=== PATIENT | female | born 1980 | race Caucasian/White ===

== ENCOUNTER 2017-10-09 21:26 | Inpatient (IN) | payer MEDICAID, OTHER ==
[~2017-10-09] VITALS: Ht 172.7 cm; Wt 94.0 kg
[2017-10-09 22:15] LABS: Basophils # (auto) 0 uL; Basophils % (auto) 0.4 % (0.0-2.0); Eosinophils # (auto) 0 uL; Hemoglobin 14.6 g/dL (12.2-16.2); Lymphocytes # (auto) 0.8 uL; Lymphocytes % (auto) 9.2 % (10.0-50.0); Mean Corpuscular Hemoglobin 29.3 pg (28.0-32.0); Mean Corpuscular Hgb Conc. 31.7 g/dL (32.0-36.0); Mean Corpuscular Volume 92.4 fL (80.0-100.0); Monocytes # (auto) 0.5 uL; Monocytes % (auto) 5.5 % (0.0-12.0); Neutrophils # (auto) 7.3 uL; Neutrophils % (auto) 84.9 % (37.0-80.0); Nucleated Red Blood Cells % 0.2 %; Platelet Count (auto) 360 10^3/uL (140-450); Red Blood Cells 4.98 10^6/uL (4.0-5.20); Red Cell Distribution Width 14.1 % (11.8-14.3); White Blood Cell 8.7 10^3/uL (4.4-10.8)
[2017-10-09 22:29] LABS: Albumin 4.1 g/dL (3.4-5.0); BUN/Creatinine Ratio 19.6; Bilirubin, Total 0.5 mg/dL (0.2-1.0); Calcium 8.7 mg/dL (8.5-10.1); Potassium 4.3 mmol/L (3.5-5.1); Total Protein 8.4 g/dL (6.4-8.2)
[2017-10-09 22:43] LABS: Urine Bacteria NONE SEEN /hpf (None Seen); Urine Blood 3+ /uL (Negative); Urine Specific Gravity 1.016 (1.001-1.035); Urine WBC 182 /hpf (0 - 5)
[2017-10-09] MEDS ORDERED: SODIUM CHLORIDE 0.9% 2,000 ML IV ONE (23:45)
[2017-10-09] MEDS ORDERED: LORazepam 2MG/ML-1ML VIAL IV ONE (23:45)
[2017-10-09] MEDS ORDERED: NALBUPHINE HCL 10 MG/1ml INJECTION IV ONE (23:45)
[2017-10-10] VITALS (8 sets, daily range): BP systolic 88–118; BP diastolic 44–82
[2017-10-10] MEDS ORDERED: LORazepam 0.5 MG TAB PO ONE (01:45)
[2017-10-10] MEDS ORDERED: cefTRIAXone 1GM/10ml IVPUSH 10 ML IV ONE (01:45)
[2017-10-10] MEDS ORDERED: SODIUM CHLORIDE 0.9% 1,000 ML IV SCH ×4 (01:55→12:43)
[2017-10-10] MEDS ORDERED: InsuLIN R (HUMAN) 100 UNITS in SODIUM CHL 0.9% 99 ML IV SCH ×2 (01:55→08:43)
[2017-10-10] MEDS ORDERED: DEXTROSE (50%) 50ML SYRG IV PRN ×2 (02:00→08:45)
[2017-10-10] MEDS ORDERED: MAGNESIUM CITRATE SOLUTION 300 ML BTL PO ONE (02:00)
[2017-10-10] MEDS ORDERED: InsuLIN REG 1unit/0.01ml Soln (100units/ml) ONE (02:36)
[2017-10-10] MEDS: ACCU-CHEK COMFORT CURVE STRIP VI SCH ×15 (02:50→22:30)
[2017-10-10 03:27] LABS: BUN/Creatinine Ratio 18.9; Magnesium 2.8 mg/dL (1.6-2.6); Phosphorus 5.5 mg/dL (2.5-4.90)
[2017-10-10 04:24] LABS: Basophils # (auto) 0.1 uL; Hemoglobin 14.1 g/dL (12.2-16.2); White Blood Cell 17.7 10^3/uL (4.4-10.8)
[2017-10-10 04:26] LABS: Basophils % (auto) 0.5 % (0.0-2.0); Eosinophils # (auto) 0.1 uL; Eosinophils % (auto) 0.4 % (0.0-7.0); Hematocrit 46.6 % (36.0-46.0); Lymphocytes # (auto) 2.2 uL; Lymphocytes % (auto) 12.5 % (10.0-50.0); Mean Corpuscular Hemoglobin 29.4 pg (28.0-32.0); Mean Corpuscular Hgb Conc. 30.4 g/dL (32.0-36.0); Mean Corpuscular Volume 96.9 fL (80.0-100.0); Monocytes # (auto) 0.9 uL; Monocytes % (auto) 5.3 % (0.0-12.0); Neutrophils # (auto) 14.4 uL; Neutrophils % (auto) 81.3 % (37.0-80.0); Platelet Count (auto) 480 10^3/uL (140-450)
[2017-10-10] MEDS ORDERED: D5W/SOD CHLO 0.9% 1,000 ML IV SCH (04:45)
[2017-10-10] MEDS ORDERED: SODIUM BICARBONATE 8.4 % INJ 50ML VIAL IV ONE ×4 (05:15→23:45)
[2017-10-10] MEDS ORDERED: DIAZEPAM 5 MG/ML 2ML SYRG IV ONE (07:30)
[2017-10-10] MEDS ORDERED: SUCCINYLCHOLINE CHLORIDE 20 MG/ML 10ML VIAL IV ONE (08:00)
[2017-10-10] MEDS ORDERED: ETOMIDATE (2MG/ML) 20ML VIAL IV ONE ×2 (08:00→08:49)
[2017-10-10] MEDS ORDERED: AZITHROMYCIN 500MG/ 250ML 250 ML IV ONE (08:30)
[2017-10-10] MEDS ORDERED: PIPERACILLIN-TAZOB 3.375GM 50 ML IV ONE (08:30)
[2017-10-10] MEDS ORDERED: VANCOMYCIN PER PHARMACY 0 MG IV SCH (08:30)
[2017-10-10] MEDS ORDERED: SODIUM CHLORIDE 0.9% 2,000 ML IV ONE (08:30)
[2017-10-10] MEDS ORDERED: PROMETHAZINE HCL 25 MG/ML 1ML IV PRN (08:45)
[2017-10-10] MEDS ORDERED: MORPHINE SULFATE 4 MG/ML SYR/VIAL IV PRN ×3 (08:45→09:00)
[2017-10-10] MEDS ORDERED: ALBUTEROL SULF 2.5 MG/0.5ML(0.5%) NEB SOLN NEB PRN (08:45)
[2017-10-10] MEDS ORDERED: MORPHINE SULF INJ 2 MG/ML SYRINGE 1ML IV PRN ×2 (08:45)
[2017-10-10] MEDS ORDERED: OSELTAMIVIR 75 MG CAP PO ONE (08:45)
[2017-10-10] MEDS ORDERED: NITROGLYCERIN 0.4 MG SL TAB SL PRN (08:45)
[2017-10-10] MEDS ORDERED: LORazepam 2MG/ML-1ML VIAL IV PRN (08:45)
[2017-10-10] MEDS ORDERED: PROPOFOL 100 ML IV SCH (08:59)
[2017-10-10] MEDS: SODIUM CHLORIDE 0.9% 1,000 ML IV SCH ×4 (09:26→21:56)
[2017-10-10 09:27] LABS: Urine Bacteria NONE SEEN /hpf (None Seen); Urine Blood 2+ /uL (Negative); Urine Specific Gravity 1.015 (1.001-1.035); Urine WBC 1 /hpf (0 - 5)
[2017-10-10] MEDS: VANCOMYCIN 750 MG in SODIUM CHL 0.9% 250 ML IV SCH ×2 (09:38→22:00)
[2017-10-10] MEDS: OSELTAMIVIR 75 MG CAP PO SCH ×3 (09:45→23:31)
[2017-10-10] MEDS: AZITHROMYCIN 500MG/ 250ML 250 ML IV SCH (10:00)
[2017-10-10] MEDS ORDERED: ENOXAPARIN SOD 40 MG/0.4 ML SYRINGE SC SCH (10:00)
[2017-10-10] MEDS: MIDAZOLAM DRIP 50 mg/50mL 50 ML IV SCH ×2 (11:12→19:29)
[2017-10-10 11:40] LABS: BUN/Creatinine Ratio 20.7; Calcium 6.5 mg/dL (8.5-10.1); Potassium 4.2 mmol/L (3.5-5.1)
[2017-10-10] MEDS: ALBUTEROL SULF 2.5 MG/0.5ML(0.5%) NEB SOLN NEB SCH ×2 (12:00→19:26)
[2017-10-10] MEDS: PIPERACILLIN-TAZOB 3.375GM 50 ML IV SCH ×2 (13:02→17:56)
[2017-10-10 16:11] LABS: Alcohol, Urine < 3.0 mg/dL (0-5); Amphetamine Screen, Urine NEGATIVE (NEGATIVE); Barbiturate Scree,Urine NEGATIVE (NEGATIVE); Benzodiazephine Screen, Urine NEGATIVE (NEGATIVE); Cannabinoid Screen, Urine NEGATIVE (NEGATIVE); Cocaine Screen, Urine NEGATIVE (NEGATIVE); Opiate Scree,Urine NEGATIVE (NEGATIVE); Phencyclidine Screen, Urine NEGATIVE (NEGATIVE)
[2017-10-10] MEDS ORDERED: SOD CHL 0.45% 1,000 ML IV SCH (19:00)
[2017-10-10] MEDS: SODIUM BICARBONATE 50ML VIAL 50 ML in SOD CHL 0.45% 1,000 ML IV SCH (20:01)
[2017-10-10] MEDS ORDERED: SODIUM BICARBONATE 8.4% INJ 50ML SYRINGE ONE (22:48)
[2017-10-10 23:02] LABS: Potassium 4.4 mmol/L (3.5-5.1)
[2017-10-10 23:13] LABS: BUN/Creatinine Ratio 14.4; Calcium 6.8 mg/dL (8.5-10.1)
[2017-10-11] VITALS (12 sets, daily range): BP systolic 91–120; BP diastolic 35–64
[2017-10-11] MEDS: ALBUTEROL SULF 2.5 MG/0.5ML(0.5%) NEB SOLN NEB SCH ×4 (00:24→18:00)
[2017-10-11] MEDS: PIPERACILLIN-TAZOB 3.375GM 50 ML IV SCH ×4 (02:00→17:53)
[2017-10-11] MEDS: ACCU-CHEK COMFORT CURVE STRIP VI SCH ×16 (02:00→22:46)
[2017-10-11] MEDS: SODIUM CHLORIDE 0.9% 1,000 ML IV SCH (04:03)
[2017-10-11] MEDS ORDERED: NOREPINEPHRINE 8 MG/250ML KIT 250 ML IV SCH (05:02)
[2017-10-11] MEDS ORDERED: NOREPINEPHRINE 8 MG/250ML KIT 250 ML IV ONE (05:06)
[2017-10-11] MEDS: NOREPINEPHRINE 8 MG/250ML KIT 250 ML IV SCH ×4 (05:30→18:02)
[2017-10-11] MEDS: SODIUM BICARBONATE 50ML VIAL 50 ML in SOD CHL 0.45% 1,000 ML IV SCH ×2 (06:05→23:38)
[2017-10-11] MEDS: MIDAZOLAM DRIP 50 mg/50mL 50 ML IV SCH ×5 (06:32→19:40)
[2017-10-11 07:11] LABS: Albumin 2.6 g/dL (3.4-5.0); Calcium 7.1 mg/dL (8.5-10.1); Potassium 4.2 mmol/L (3.5-5.1)
[2017-10-11 07:15] LABS: Bilirubin, Total 0.6 mg/dL (0.2-1.0); Total Protein 6.3 g/dL (6.4-8.2)
[2017-10-11] MEDS ORDERED: ACETAMINOPHEN 650 MG RECT SUPP PR ONE (08:15)
[2017-10-11] MEDS: D5W 5% IV SCH ×4 (08:25→18:16)
[2017-10-11] MEDS: INSULIN R IV SCH ×4 (08:25→18:16)
[2017-10-11] MEDS ORDERED: SODIUM BICARBONATE 8.4 % INJ 50ML VIAL IV ONE (09:15)
[2017-10-11] MEDS ORDERED: SODIUM BICARBONATE 50ML VIAL 50 ML in SOD CHL 0.45% 1,000 ML IV SCH (09:15)
[2017-10-11] MEDS ORDERED: SOD CHL 0.45% 1,000 ML IV SCH (09:30)
[2017-10-11] MEDS: LINEZOLID 600MG/300ML 300 ML IV SCH ×2 (10:00→22:37)
[2017-10-11] MEDS: OSELTAMIVIR 75 MG CAP PO SCH ×2 (10:00→22:38)
[2017-10-11] MEDS ORDERED: FLUCONAZOLE 200MG/100ML 100 ML IV SCH (10:00)
[2017-10-11] MEDS ORDERED: metroNIDAZOLE 500MG/100ML 100 ML IV ONE (10:45)
[2017-10-11 10:48] LABS: Basophils # (auto) 0.1 uL; Eosinophils # (auto) 0 uL; Eosinophils % (auto) 0.1 % (0.0-7.0); Hemoglobin 12.6 g/dL (12.2-16.2); Lymphocytes # (auto) 1.5 uL; Lymphocytes % (auto) 7.8 % (10.0-50.0); Neutrophils # (auto) 15.5 uL
[2017-10-11 10:50] LABS: Basophils % (auto) 0.4 % (0.0-2.0); Hematocrit 41.3 % (36.0-46.0); Mean Corpuscular Hgb Conc. 30.5 g/dL (32.0-36.0); Monocytes # (auto) 1.9 uL; Neutrophils % (auto) 81.7 % (37.0-80.0); Nucleated Red Blood Cells % 0.3 %; Platelet Count (auto) 304 10^3/uL (140-450); Red Blood Cells 4.35 10^6/uL (4.0-5.20); Red Cell Distribution Width 14.7 % (11.8-14.3); White Blood Cell 18.9 10^3/uL (4.4-10.8)
[2017-10-11 11:05] LABS: INR 0.94 (0.9-1.15); Prothrombin Time 10.2 sec (9.37-12.3)
[2017-10-11] MEDS: FLUCONAZOLE 200MG/100ML 100 ML IV SCH ×2 (11:23→12:05)
[2017-10-11] MEDS: AZITHROMYCIN 500MG/ 250ML 250 ML IV SCH (11:23)
[2017-10-11] MEDS ORDERED: PANTOPRAZOLE 40 MG/10 ML VIAL IV ONE (12:00)
[2017-10-11] MEDS: metroNIDAZOLE 500MG/100ML 100 ML IV SCH ×3 (12:15→23:15)
[2017-10-11 12:31] LABS: Hematocrit 38.2 % (36.0-46.0); Hemoglobin 11.9 g/dL (12.2-16.2)
[2017-10-11 12:44] LABS: Amylase 441 U/L (25-115); Lipase 3224 U/L (73-393)
[2017-10-11] MEDS ORDERED: SODIUM BICARBONATE 50ML VIAL 100 ML in SOD CHL 0.45% 1,000 ML IV SCH (14:30)
[2017-10-11] MEDS ORDERED: SODIUM BICARBONATE 8.4 % INJ 50ML VIAL IV SCH (15:00)
[2017-10-11] MEDS: SOD CHL 0.45% 1,000 ML IV SCH (15:15)
[2017-10-11] MEDS ORDERED: SODIUM BICARBONATE 50ML VIAL 150 ML in D5W 5% 1,000 ML IV SCH (15:15)
[2017-10-11 17:47] LABS: Hematocrit 37.8 % (36.0-46.0); Hemoglobin 11.7 g/dL (12.2-16.2)
[2017-10-11] MEDS: InsuLIN R (HUMAN) 100 UNITS in SODIUM CHL 0.9% 99 ML IV SCH (21:43)
[2017-10-11] MEDS: PANTOPRAZOLE 40 MG/10 ML VIAL IV SCH (22:37)
[2017-10-12] VITALS (56 sets, daily range): BP systolic 104–140; BP diastolic 52–102
[2017-10-12] MEDS: ACCU-CHEK COMFORT CURVE STRIP VI SCH ×16 (00:14→22:30)
[2017-10-12] MEDS: PIPERACILLIN-TAZOB 3.375GM 50 ML IV SCH ×2 (00:23→06:00)
[2017-10-12 01:10] LABS: Hemoglobin 11.6 g/dL (12.2-16.2)
[2017-10-12] MEDS: metroNIDAZOLE 500MG/100ML 100 ML IV SCH ×2 (05:11→10:56)
[2017-10-12] MEDS: ALBUTEROL SULF 2.5 MG/0.5ML(0.5%) NEB SOLN NEB SCH ×4 (06:10→18:53)
[2017-10-12 07:24] LABS: Basophils # (auto) 0 uL; Basophils % (auto) 0.1 % (0.0-2.0); Eosinophils # (auto) 0 uL; Hematocrit 36.3 % (36.0-46.0); Hemoglobin 12.6 g/dL (12.2-16.2); Lymphocytes # (auto) 0.5 uL; Lymphocytes % (auto) 6.1 % (10.0-50.0); Mean Corpuscular Hemoglobin 30.6 pg (28.0-32.0); Mean Corpuscular Hgb Conc. 34.8 g/dL (32.0-36.0); Mean Corpuscular Volume 87.8 fL (80.0-100.0); Monocytes % (auto) 12.6 % (0.0-12.0); Neutrophils # (auto) 6.5 uL; Neutrophils % (auto) 81.2 % (37.0-80.0); Nucleated Red Blood Cells % 0.2 %; Platelet Count (auto) 162 10^3/uL (140-450); Red Blood Cells 4.14 10^6/uL (4.0-5.20); Red Cell Distribution Width 13.6 % (11.8-14.3)
[2017-10-12 07:38] LABS: INR 0.92 (0.9-1.15); Partial Thromboplastin Time 28.2 sec (22.64-33.71)
[2017-10-12 07:47] LABS: Albumin 2.2 g/dL (3.4-5.0); BUN/Creatinine Ratio 7.6; Bilirubin, Total 0.5 mg/dL (0.2-1.0); Calcium 6.6 mg/dL (8.5-10.1); Total Protein 5.6 g/dL (6.4-8.2)
[2017-10-12 07:52] LABS: Potassium 2.6 mmol/L (3.5-5.1)
[2017-10-12] MEDS: POTASSIUM CHL 20MEQ/50ML 50 ML IV SCH ×3 (09:07→14:44)
[2017-10-12] MEDS ORDERED: InsuLIN REG 1unit/0.01ml Soln (100units/ml) IV ONE (09:15)
[2017-10-12] MEDS ORDERED: OSELTAMIVIR 75MG/5ML ORAL SUSP GT SCH (10:00)
[2017-10-12] MEDS: SODIUM BICARBONATE 50ML VIAL 50 ML in SOD CHL 0.45% 1,000 ML IV SCH (10:16)
[2017-10-12] MEDS: PANTOPRAZOLE 40 MG/10 ML VIAL IV SCH ×2 (10:46→21:38)
[2017-10-12] MEDS: LINEZOLID 600MG/300ML 300 ML IV SCH ×2 (10:46→21:38)
[2017-10-12] MEDS: AZITHROMYCIN 500MG/ 250ML 250 ML IV SCH (10:46)
[2017-10-12] MEDS: OSELTAMIVIR 30MG/2ML ORAL SUSP PO SCH (10:51)
[2017-10-12] MEDS: SOD CHL 0.45% 1,000 ML IV SCH ×3 (10:52→21:12)
[2017-10-12] MEDS ORDERED: SODIUM BICARBONATE 50ML VIAL 50 ML in SOD CHL 0.45% 1,000 ML IV SCH (11:45)
[2017-10-12] MEDS ORDERED: MORPHINE SULFATE 4 MG/ML SYR/VIAL IV PRN (12:00)
[2017-10-12 13:42] LABS: BUN/Creatinine Ratio 7.1; Calcium 6.4 mg/dL (8.5-10.1)
[2017-10-12 13:52] LABS: Potassium 2.6 mmol/L (3.5-5.1)
[2017-10-12] MEDS ORDERED: POTASSIUM CHL 20MEQ/50ML 50 ML IV ONE (14:15)
[2017-10-12] MEDS ORDERED: LIDOCAINE 2%HCL (LOCAL ANESTH.) INJ 20ML MDV ONE (15:32)
[2017-10-12] MEDS ORDERED: HEPARIN SODIUM (PORCINE) 5000 UNITS/ML 1ML VIAL ONE (15:40)
[2017-10-12] MEDS: MIDAZOLAM DRIP 50 mg/50mL 50 ML IV SCH (21:30)
[2017-10-12] MEDS: PIPERACILLIN TAZOB 2.25 GM IV SCH (21:40)
[2017-10-12] MEDS: InsuLIN R (HUMAN) 100 UNITS in SODIUM CHL 0.9% 99 ML IV SCH (21:43)
[2017-10-13] VITALS (86 sets, daily range): BP systolic 103–141; BP diastolic 40–91
[2017-10-13] MEDS: ACCU-CHEK COMFORT CURVE STRIP VI SCH ×16 (00:01→22:36)
[2017-10-13] MEDS: ALBUTEROL SULF 2.5 MG/0.5ML(0.5%) NEB SOLN NEB SCH ×4 (00:27→20:34)
[2017-10-13 00:30] LABS: BUN/Creatinine Ratio 6.3; Calcium 6.5 mg/dL (8.5-10.1)
[2017-10-13 00:37] LABS: Potassium 2.7 mmol/L (3.5-5.1)
[2017-10-13] MEDS: POTASSIUM CHL 20MEQ/50ML 50 ML IV SCH ×2 (01:15→03:22)
[2017-10-13] MEDS: MIDAZOLAM DRIP 50 mg/50mL 50 ML IV SCH ×2 (02:34→07:28)
[2017-10-13] MEDS: SOD CHL 0.45% 1,000 ML IV SCH ×4 (03:35→20:00)
[2017-10-13 04:15] LABS: Basophils # (auto) 0 uL; Eosinophils # (auto) 0 uL; Hematocrit 31.8 % (36.0-46.0); Lymphocytes # (auto) 0.5 uL; Lymphocytes % (auto) 8.5 % (10.0-50.0); Mean Corpuscular Hemoglobin 29.5 pg (28.0-32.0); Mean Corpuscular Hgb Conc. 34.5 g/dL (32.0-36.0); Mean Corpuscular Volume 85.5 fL (80.0-100.0); Monocytes # (auto) 0.6 uL; Monocytes % (auto) 9.7 % (0.0-12.0); Neutrophils # (auto) 5.2 uL; Neutrophils % (auto) 81.8 % (37.0-80.0); Nucleated Red Blood Cells % 0.1 %; Platelet Count (auto) 130 10^3/uL (140-450); Red Blood Cells 3.72 10^6/uL (4.0-5.20); Red Cell Distribution Width 13.5 % (11.8-14.3); White Blood Cell 6.4 10^3/uL (4.4-10.8)
[2017-10-13 04:30] LABS: Albumin 1.9 g/dL (3.4-5.0); Calcium 6.5 mg/dL (8.5-10.1); Potassium 3.3 mmol/L (3.5-5.1)
[2017-10-13 04:32] LABS: BUN/Creatinine Ratio 6.4
[2017-10-13 04:40] LABS: Bilirubin, Total 0.5 mg/dL (0.2-1.0); Total Protein 5.1 g/dL (6.4-8.2)
[2017-10-13] MEDS: NOREPINEPHRINE 8 MG/250ML KIT 250 ML IV SCH (05:30)
[2017-10-13] MEDS: PIPERACILLIN TAZOB 2.25 GM IV SCH ×3 (05:58→22:36)
[2017-10-13] MEDS ORDERED: FUROSEMIDE 100 MG/10ML VIAL IV ONE (09:15)
[2017-10-13] MEDS: PANTOPRAZOLE 40 MG/10 ML VIAL IV SCH ×2 (09:57→22:35)
[2017-10-13] MEDS: OSELTAMIVIR 30MG/2ML ORAL SUSP PO SCH (10:00)
[2017-10-13] MEDS: LINEZOLID 600MG/300ML 300 ML IV SCH ×2 (11:20→22:36)
[2017-10-13] MEDS: Novasource Renal 1 Liter GT SCH (19:00)
[2017-10-13 19:03] LABS: BUN/Creatinine Ratio 6.4; Calcium 6.5 mg/dL (8.5-10.1); Potassium 3.2 mmol/L (3.5-5.1)
[2017-10-13] MEDS: InsuLIN R (HUMAN) 100 UNITS in SODIUM CHL 0.9% 99 ML IV SCH (22:41)
[2017-10-14] VITALS (108 sets, daily range): BP systolic 90–169; BP diastolic 45–108
[2017-10-14] MEDS: ALBUTEROL SULF 2.5 MG/0.5ML(0.5%) NEB SOLN NEB SCH ×4 (01:28→18:54)
[2017-10-14] MEDS: ACCU-CHEK COMFORT CURVE STRIP VI SCH ×16 (01:30→22:31)
[2017-10-14 04:38] LABS: Basophils # (auto) 0 uL; Eosinophils # (auto) 0 uL; Eosinophils % (auto) 0.1 % (0.0-7.0); Hematocrit 31.9 % (36.0-46.0); Lymphocytes # (auto) 0.7 uL; Lymphocytes % (auto) 11.4 % (10.0-50.0); Mean Corpuscular Hemoglobin 29.6 pg (28.0-32.0); Mean Corpuscular Hgb Conc. 34.4 g/dL (32.0-36.0); Mean Corpuscular Volume 86.1 fL (80.0-100.0); Monocytes # (auto) 0.6 uL; Neutrophils # (auto) 5.1 uL; Neutrophils % (auto) 79.5 % (37.0-80.0); Nucleated Red Blood Cells % 0.1 %; Platelet Count (auto) 134 10^3/uL (140-450); Red Cell Distribution Width 13.6 % (11.8-14.3); White Blood Cell 6.5 10^3/uL (4.4-10.8)
[2017-10-14 04:53] LABS: Albumin 1.9 g/dL (3.4-5.0); Calcium 6.7 mg/dL (8.5-10.1)
[2017-10-14 04:55] LABS: BUN/Creatinine Ratio 6.8
[2017-10-14 04:57] LABS: Bilirubin, Total 0.4 mg/dL (0.2-1.0); Total Protein 5.2 g/dL (6.4-8.2)
[2017-10-14 05:10] LABS: Potassium 2.9 mmol/L (3.5-5.1)
[2017-10-14] MEDS: NOREPINEPHRINE 8 MG/250ML KIT 250 ML IV SCH (05:30)
[2017-10-14] MEDS: PIPERACILLIN TAZOB 2.25 GM IV SCH ×3 (06:08→22:28)
[2017-10-14] MEDS ORDERED: ALBUMIN 25% 200 ML IV ONE (06:54)
[2017-10-14] MEDS ORDERED: ALBUMIN 25% 100 ML IV ONE (07:00)
[2017-10-14] MEDS: SOD CHL 0.45% 1,000 ML IV SCH ×2 (09:18→15:46)
[2017-10-14] MEDS: OSELTAMIVIR 30MG/2ML ORAL SUSP PO SCH (10:09)
[2017-10-14] MEDS: MIDAZOLAM DRIP 50 mg/50mL 50 ML IV SCH (10:51)
[2017-10-14] MEDS: PANTOPRAZOLE 40 MG/10 ML VIAL IV SCH (11:05)
[2017-10-14] MEDS: LINEZOLID 600MG/300ML 300 ML IV SCH ×2 (11:05→22:28)
[2017-10-14] MEDS ORDERED: ENOXAPARIN SOD 30 MG/0.3 ML SYRINGE SC ONE (15:30)
[2017-10-14] MEDS ORDERED: LORazepam 2MG/ML-1ML VIAL IV PRN (15:45)
[2017-10-14] MEDS ORDERED: POTASSIUM CHL 20MEQ/50ML 50 ML IV ONE ×2 (17:45)
[2017-10-14] MEDS: InsuLIN R (HUMAN) 100 UNITS in SODIUM CHL 0.9% 99 ML IV SCH (22:39)
[2017-10-15] VITALS (97 sets, daily range): BP systolic 88–163; BP diastolic 49–103
[2017-10-15] MEDS: ACCU-CHEK COMFORT CURVE STRIP VI SCH ×16 (00:02→22:29)
[2017-10-15] MEDS: ALBUTEROL SULF 2.5 MG/0.5ML(0.5%) NEB SOLN NEB SCH ×4 (00:28→18:48)
[2017-10-15] MEDS: SOD CHL 0.45% 1,000 ML IV SCH (02:25)
[2017-10-15 05:16] LABS: Basophils # (auto) 0 uL; Basophils % (auto) 0.1 % (0.0-2.0); Eosinophils # (auto) 0 uL; Eosinophils % (auto) 0.7 % (0.0-7.0); Hematocrit 30.6 % (36.0-46.0); Hemoglobin 10.5 g/dL (12.2-16.2); Lymphocytes # (auto) 0.9 uL; Lymphocytes % (auto) 13.6 % (10.0-50.0); Mean Corpuscular Hemoglobin 29.4 pg (28.0-32.0); Mean Corpuscular Hgb Conc. 34.3 g/dL (32.0-36.0); Mean Corpuscular Volume 85.6 fL (80.0-100.0); Monocytes # (auto) 0.5 uL; Monocytes % (auto) 8.1 % (0.0-12.0); Neutrophils # (auto) 5.1 uL; Neutrophils % (auto) 77.5 % (37.0-80.0); Nucleated Red Blood Cells % 0.1 %; Platelet Count (auto) 118 10^3/uL (140-450); Red Blood Cells 3.57 10^6/uL (4.0-5.20); Red Cell Distribution Width 13.6 % (11.8-14.3); White Blood Cell 6.6 10^3/uL (4.4-10.8)
[2017-10-15] MEDS: NOREPINEPHRINE 8 MG/250ML KIT 250 ML IV SCH (05:30)
[2017-10-15 05:58] LABS: BUN/Creatinine Ratio 6.4; Calcium 7.1 mg/dL (8.5-10.1); Potassium 3.1 mmol/L (3.5-5.1)
[2017-10-15] MEDS: PIPERACILLIN TAZOB 2.25 GM IV SCH ×3 (06:11→22:00)
[2017-10-15] MEDS: MIDAZOLAM DRIP 50 mg/50mL 50 ML IV SCH (10:51)
[2017-10-15] MEDS: LINEZOLID 600MG/300ML 300 ML IV SCH ×2 (10:58→22:00)
[2017-10-15] MEDS: PANTOPRAZOLE 40 MG/10 ML VIAL IV SCH (10:58)
[2017-10-15] MEDS: ENOXAPARIN SOD 30 MG/0.3 ML SYRINGE SC SCH (10:58)
[2017-10-15] MEDS: OSELTAMIVIR 30MG/2ML ORAL SUSP PO SCH (11:23)
[2017-10-15] MEDS ORDERED: POTASSIUM CHL 20 Meq TABLET PO ONE ×2 (11:30→13:30)
[2017-10-15] MEDS ORDERED: POTASSIUM CHLORIDE 40 MEQ, LIDOCAINE 1% (LOCAL ANESTH.) 4 ML in SODIUM CHL 0.9% 100 ML IV ONE (11:45)
[2017-10-15] MEDS: D5W/SOD CHLO 0.9% 1,000 ML IV SCH ×2 (13:16→21:15)
[2017-10-15 13:26] LABS: INR 0.97 (0.9-1.15); Prothrombin Time 10.6 sec (9.37-12.3)
[2017-10-15 13:35] LABS: % Iron Saturation 45.4 % (15-50)
[2017-10-15 19:34] LABS: Urine Bacteria NONE SEEN /hpf (None Seen); Urine Blood 2+ /uL (Negative); Urine Budding Yeast OCCASIONAL /hpf (None Seen); Urine Specific Gravity 1.008 (1.001-1.035); Urine WBC 48 /hpf (0 - 5)
[2017-10-15] MEDS: InsuLIN R (HUMAN) 100 UNITS in SODIUM CHL 0.9% 99 ML IV SCH (20:00)
[2017-10-15] MEDS: metroNIDAZOLE 500MG/100ML 100 ML IV SCH (22:00)
[2017-10-15] MEDS: Novasource Renal 1 Liter GT SCH (22:33)
[2017-10-15] MEDS: MORPHINE SULFATE 4 MG/ML SYR/VIAL IV PRN (22:37)
[2017-10-16] VITALS (58 sets, daily range): BP systolic 100–139; BP diastolic 49–92
[2017-10-16] MEDS: ALBUTEROL SULF 2.5 MG/0.5ML(0.5%) NEB SOLN NEB SCH ×4 (00:35→18:17)
[2017-10-16] MEDS: ACCU-CHEK COMFORT CURVE STRIP VI SCH ×17 (01:30→23:40)
[2017-10-16] MEDS: MORPHINE SULFATE 4 MG/ML SYR/VIAL IV PRN ×2 (04:20→05:13)
[2017-10-16] MEDS: D5W/SOD CHLO 0.9% 1,000 ML IV SCH (04:22)
[2017-10-16 04:43] LABS: Basophils # (auto) 0 uL; Basophils % (auto) 0.1 % (0.0-2.0); Eosinophils # (auto) 0.2 uL; Eosinophils % (auto) 3.4 % (0.0-7.0); Hematocrit 28.4 % (36.0-46.0); Hemoglobin 9.6 g/dL (12.2-16.2); Lymphocytes % (auto) 14.5 % (10.0-50.0); Mean Corpuscular Hemoglobin 29.6 pg (28.0-32.0); Mean Corpuscular Hgb Conc. 33.8 g/dL (32.0-36.0); Mean Corpuscular Volume 87.5 fL (80.0-100.0); Monocytes # (auto) 0.6 uL; Monocytes % (auto) 8.4 % (0.0-12.0); Neutrophils # (auto) 4.9 uL; Neutrophils % (auto) 73.6 % (37.0-80.0); Platelet Count (auto) 111 10^3/uL (140-450); Red Blood Cells 3.25 10^6/uL (4.0-5.20); White Blood Cell 6.7 10^3/uL (4.4-10.8)
[2017-10-16 05:10] LABS: Albumin 1.9 g/dL (3.4-5.0); BUN/Creatinine Ratio 6.5; Bilirubin, Total 0.4 mg/dL (0.2-1.0); Magnesium 2.3 mg/dL (1.6-2.6)
[2017-10-16] MEDS: PIPERACILLIN TAZOB 2.25 GM IV SCH ×3 (05:14→22:28)
[2017-10-16] MEDS: metroNIDAZOLE 500MG/100ML 100 ML IV SCH ×3 (05:14→22:27)
[2017-10-16] MEDS: NOREPINEPHRINE 8 MG/250ML KIT 250 ML IV SCH (05:30)
[2017-10-16] MEDS ORDERED: POTASSIUM CHL 20 Meq TABLET PO ONE ×2 (08:00→09:30)
[2017-10-16] MEDS ORDERED: MORPHINE SULFATE 10 MG/ML INJ 1ML SDV IV PRN ×3 (09:30)
[2017-10-16] MEDS: SODIUM CHLORIDE 0.9% 1,000 ML IV SCH ×2 (09:30→19:30)
[2017-10-16] MEDS ORDERED: NEUTRA-PHOS TABLET PO ONE (09:45)
[2017-10-16] MEDS ORDERED: DEXTROSE (50%) 50ML SYRG IV PRN (09:45)
[2017-10-16] MEDS: OSELTAMIVIR 30MG/2ML ORAL SUSP PO SCH (10:00)
[2017-10-16] MEDS: MIDAZOLAM DRIP 50 mg/50mL 50 ML IV SCH (10:51)
[2017-10-16] MEDS ORDERED: POTASSIUM PHOSPHATE 22 MEQ in SODIUM CHL 0.9% 100 ML IV ONE (11:30)
[2017-10-16] MEDS: ENOXAPARIN SOD 30 MG/0.3 ML SYRINGE SC SCH (11:52)
[2017-10-16] MEDS: LINEZOLID 600MG/300ML 300 ML IV SCH ×2 (11:52→22:28)
[2017-10-16] MEDS: PANTOPRAZOLE 40 MG/10 ML VIAL IV SCH (11:52)
[2017-10-16] MEDS: InsuLIN REG 1unit/0.01ml Soln (100units/ml) SC SCH ×3 (13:18→23:39)
[2017-10-17] VITALS (61 sets, daily range): BP systolic 107–141; BP diastolic 49–90
[2017-10-17] MEDS: ALBUTEROL SULF 2.5 MG/0.5ML(0.5%) NEB SOLN NEB SCH ×4 (00:15→19:03)
[2017-10-17 04:16] LABS: Basophils # (auto) 0 uL; Basophils % (auto) 0.2 % (0.0-2.0); Eosinophils # (auto) 0.3 uL; Eosinophils % (auto) 4.3 % (0.0-7.0); Hematocrit 29.2 % (36.0-46.0); Hemoglobin 9.7 g/dL (12.2-16.2); Lymphocytes # (auto) 0.7 uL; Lymphocytes % (auto) 9.9 % (10.0-50.0); Mean Corpuscular Hemoglobin 29.2 pg (28.0-32.0); Mean Corpuscular Hgb Conc. 33.3 g/dL (32.0-36.0); Mean Corpuscular Volume 87.7 fL (80.0-100.0); Monocytes # (auto) 0.9 uL; Monocytes % (auto) 12.6 % (0.0-12.0); Neutrophils # (auto) 5.1 uL; Platelet Count (auto) 130 10^3/uL (140-450); Red Blood Cells 3.32 10^6/uL (4.0-5.20); Red Cell Distribution Width 13.9 % (11.8-14.3); White Blood Cell 6.9 10^3/uL (4.4-10.8)
[2017-10-17 04:40] LABS: Albumin 1.9 g/dL (3.4-5.0); Bilirubin, Total 0.5 mg/dL (0.2-1.0); Calcium 7.6 mg/dL (8.5-10.1); Magnesium 2.6 mg/dL (1.6-2.6); Phosphorus 3.8 mg/dL (2.5-4.90); Potassium 3.9 mmol/L (3.5-5.1); Total Protein 5.5 g/dL (6.4-8.2)
[2017-10-17] MEDS: InsuLIN REG 1unit/0.01ml Soln (100units/ml) SC SCH ×3 (06:00→17:44)
[2017-10-17] MEDS: metroNIDAZOLE 500MG/100ML 100 ML IV SCH (06:00)
[2017-10-17] MEDS: ACCU-CHEK COMFORT CURVE STRIP VI SCH ×3 (06:00→17:08)
[2017-10-17] MEDS: PIPERACILLIN TAZOB 2.25 GM IV SCH (06:00)
[2017-10-17] MEDS ORDERED: SODIUM CHL 0.9% 1000 ML BAG XX ONE (08:45)
[2017-10-17] MEDS ORDERED: EPOETIN ALFA 10,000 UNIT/1 ML VIAL IV ONE (08:45)
[2017-10-17] MEDS: ENOXAPARIN SOD 30 MG/0.3 ML SYRINGE SC SCH (10:00)
[2017-10-17] MEDS: LINEZOLID 600MG/300ML 300 ML IV SCH (10:20)
[2017-10-17] MEDS: PANTOPRAZOLE 40 MG/10 ML VIAL IV SCH (10:20)
[2017-10-17] MEDS: NOREPINEPHRINE 8 MG/250ML KIT 250 ML IV SCH (10:41)
[2017-10-17] MEDS: SODIUM CHLORIDE 0.9% 1,000 ML IV SCH ×2 (13:00→15:30)
[2017-10-17] MEDS ORDERED: INSULIN DETEMIR(LEVEMIR) 1unit/0.01ml Soln (100units/ml) SC ONE (13:30)
[2017-10-17] MEDS: METOCLOPRAMIDE HCL 5MG/ml INJ 2ml VIAL IV PRN (14:04)
[2017-10-17] MEDS: INSULIN DETEMIR(LEVEMIR) 1unit/0.01ml Soln (100units/ml) SC SCH (22:00)
[2017-10-18] VITALS (23 sets, daily range): BP systolic 112–140; BP diastolic 58–90
[2017-10-18 03:54] LABS: Basophils # (auto) 0 uL; Basophils % (auto) 0.2 % (0.0-2.0); Eosinophils # (auto) 0.3 uL; Eosinophils % (auto) 5.1 % (0.0-7.0); Hematocrit 28.2 % (36.0-46.0); Hemoglobin 9.5 g/dL (12.2-16.2); Lymphocytes # (auto) 1.2 uL; Lymphocytes % (auto) 18.3 % (10.0-50.0); Mean Corpuscular Hemoglobin 29.1 pg (28.0-32.0); Mean Corpuscular Hgb Conc. 33.7 g/dL (32.0-36.0); Mean Corpuscular Volume 86.4 fL (80.0-100.0); Monocytes # (auto) 1.1 uL; Monocytes % (auto) 17.5 % (0.0-12.0); Neutrophils # (auto) 3.8 uL; Neutrophils % (auto) 58.9 % (37.0-80.0); Platelet Count (auto) 187 10^3/uL (140-450); Red Blood Cells 3.26 10^6/uL (4.0-5.20); Red Cell Distribution Width 13.6 % (11.8-14.3); White Blood Cell 6.4 10^3/uL (4.4-10.8)
[2017-10-18] MEDS: SODIUM CHLORIDE 0.9% 1,000 ML IV SCH (03:57)
[2017-10-18 04:10] LABS: BUN/Creatinine Ratio 5.8; Calcium 7.9 mg/dL (8.5-10.1); Phosphorus 2.7 mg/dL (2.5-4.90); Potassium 3.3 mmol/L (3.5-5.1)
[2017-10-18] MEDS: ACCU-CHEK COMFORT CURVE STRIP VI SCH ×5 (06:00→23:56)
[2017-10-18] MEDS: InsuLIN REG 1unit/0.01ml Soln (100units/ml) SC SCH ×5 (06:00→23:55)
[2017-10-18] MEDS: ALBUTEROL SULF 2.5 MG/0.5ML(0.5%) NEB SOLN NEB SCH ×4 (06:40→19:05)
[2017-10-18] MEDS: INSULIN DETEMIR(LEVEMIR) 1unit/0.01ml Soln (100units/ml) SC SCH ×2 (10:00→23:49)
[2017-10-18] MEDS: PANTOPRAZOLE 40 MG/10 ML VIAL IV SCH (11:01)
[2017-10-18] MEDS: ENOXAPARIN SOD 30 MG/0.3 ML SYRINGE SC SCH (11:02)
[2017-10-19] MEDS: ALBUTEROL SULF 2.5 MG/0.5ML(0.5%) NEB SOLN NEB SCH ×4 (00:38→18:37)
[2017-10-19] MEDS ORDERED: SODIUM CHL 0.9% 1000 ML BAG XX ONE (04:00)
[2017-10-19] MEDS ORDERED: EPOETIN ALFA 10,000 UNIT/1 ML VIAL IV ONE (04:00)
[2017-10-19 05:00] VITALS: BP 141/95
[2017-10-19] MEDS: ACCU-CHEK COMFORT CURVE STRIP VI SCH ×3 (06:00→17:30)
[2017-10-19 06:42] LABS: Hematocrit 29.6 % (36.0-46.0); Hemoglobin 10.1 g/dL (12.2-16.2); Mean Corpuscular Hemoglobin 29.2 pg (28.0-32.0); Mean Corpuscular Hgb Conc. 34.1 g/dL (32.0-36.0); Mean Corpuscular Volume 85.7 fL (80.0-100.0); Platelet Count (auto) 228 10^3/uL (140-450); Red Blood Cells 3.45 10^6/uL (4.0-5.20); Red Cell Distribution Width 13.5 % (11.8-14.3); White Blood Cell 6.1 10^3/uL (4.4-10.8)
[2017-10-19] MEDS: InsuLIN REG 1unit/0.01ml Soln (100units/ml) SC SCH ×3 (06:45→17:30)
[2017-10-19 06:52] LABS: Basophils % (manual) 0 (0.0-2.0); Blast Cells 0; Metamyelocytes % 0; Myelocytes % 0; Promyelocytes % 0; Reactive Lymphocytes 0
[2017-10-19 07:07] LABS: Potassium 3.4 mmol/L (3.5-5.1)
[2017-10-19 07:08] LABS: Albumin 2.1 g/dL (3.4-5.0); BUN/Creatinine Ratio 6.2; Bilirubin, Total 0.3 mg/dL (0.2-1.0); Calcium 8.2 mg/dL (8.5-10.1); Total Protein 6.1 g/dL (6.4-8.2)
[2017-10-19 09:13] VITALS: BP 152/95
[2017-10-19] MEDS: PANTOPRAZOLE 40 MG/10 ML VIAL IV SCH (10:05)
[2017-10-19] MEDS: ENOXAPARIN SOD 30 MG/0.3 ML SYRINGE SC SCH (10:07)
[2017-10-19] MEDS: INSULIN DETEMIR(LEVEMIR) 1unit/0.01ml Soln (100units/ml) SC SCH ×2 (10:08→22:08)
[2017-10-19] MEDS: SODIUM CHLORIDE 0.9% 1,000 ML IV SCH (10:24)
[2017-10-19 10:41] VITALS: BP 149/92
[2017-10-19 11:03] LABS: Band Neutrophils % (manual) 0; Eosinophils % (manual) 1 (0-7); Lymphocytes % (manual) 9 (10.0-50.0); Monocytes % (manual) 26 (0-12)
[2017-10-19 13:00] VITALS: BP 144/85
[2017-10-19] MEDS ORDERED: LEVOFLOXACIN 250 MG TAB PO ONE (15:15)
[2017-10-19] MEDS: PROMETHAZINE W/CODEINE 5 ML ORAL SYRUP PO PRN ×2 (15:55→22:08)
[2017-10-19 17:04] VITALS: BP 124/86
[2017-10-19 22:09] VITALS: BP 107/76
[2017-10-20] MEDS: ALBUTEROL SULF 2.5 MG/0.5ML(0.5%) NEB SOLN NEB SCH ×4 (00:05→18:55)
[2017-10-20] MEDS: ACCU-CHEK COMFORT CURVE STRIP VI SCH ×5 (00:14→23:05)
[2017-10-20 05:34] VITALS: BP 123/78
[2017-10-20] MEDS: PROMETHAZINE W/CODEINE 5 ML ORAL SYRUP PO PRN (05:39)
[2017-10-20] MEDS: InsuLIN REG 1unit/0.01ml Soln (100units/ml) SC SCH ×5 (05:39→23:04)
[2017-10-20 06:36] LABS: BUN/Creatinine Ratio 5.2; Calcium 8.1 mg/dL (8.5-10.1); Potassium 3.6 mmol/L (3.5-5.1)
[2017-10-20 08:54] VITALS: BP 140/92
[2017-10-20] MEDS: PANTOPRAZOLE 40 MG/10 ML VIAL IV SCH (11:36)
[2017-10-20] MEDS: LEVOFLOXACIN 250 MG TAB PO SCH (11:37)
[2017-10-20] MEDS: INSULIN DETEMIR(LEVEMIR) 1unit/0.01ml Soln (100units/ml) SC SCH ×2 (11:38→23:00)
[2017-10-20] MEDS: ENOXAPARIN SOD 30 MG/0.3 ML SYRINGE SC SCH (11:39)
[2017-10-20] MEDS ORDERED: FUROSEMIDE 40 MG/4 ML VIAL IV ONE (12:15)
[2017-10-20] MEDS ORDERED: PANTOPRAZOLE 40 MG TAB PO ONE (12:15)
[2017-10-20 13:00] VITALS: BP 142/94
[2017-10-20 17:00] VITALS: BP 121/75
[2017-10-20 21:55] VITALS: BP 159/69
[2017-10-21] MEDS: ALBUTEROL SULF 2.5 MG/0.5ML(0.5%) NEB SOLN NEB SCH ×4 (01:28→19:03)
[2017-10-21 04:40] VITALS: BP 142/88
[2017-10-21] MEDS: ACCU-CHEK COMFORT CURVE STRIP VI SCH ×4 (05:16→22:59)
[2017-10-21] MEDS: InsuLIN REG 1unit/0.01ml Soln (100units/ml) SC SCH ×4 (05:21→22:59)
[2017-10-21 06:49] LABS: Potassium 3.7 mmol/L (3.5-5.1)
[2017-10-21 09:38] VITALS: BP 152/85
[2017-10-21] MEDS: LEVOFLOXACIN 250 MG TAB PO SCH (10:24)
[2017-10-21] MEDS: PANTOPRAZOLE 40 MG TAB PO SCH (10:25)
[2017-10-21] MEDS: INSULIN DETEMIR(LEVEMIR) 1unit/0.01ml Soln (100units/ml) SC SCH ×2 (10:26→23:01)
[2017-10-21] MEDS ORDERED: LORazepam 0.5 MG TAB PO PRN (11:45)
[2017-10-21 13:02] VITALS: BP 140/90
[2017-10-21 15:00] VITALS: BP 154/98
[2017-10-21 22:07] VITALS: BP 141/90
[2017-10-22] MEDS: ALBUTEROL SULF 2.5 MG/0.5ML(0.5%) NEB SOLN NEB SCH ×3 (00:43→18:44)
[2017-10-22] MEDS: InsuLIN REG 1unit/0.01ml Soln (100units/ml) SC SCH ×4 (05:05→23:18)
[2017-10-22] MEDS: ACCU-CHEK COMFORT CURVE STRIP VI SCH ×4 (05:05→23:19)
[2017-10-22 06:27] LABS: BUN/Creatinine Ratio 4.9; Calcium 8.6 mg/dL (8.5-10.1); Potassium 3.6 mmol/L (3.5-5.1)
[2017-10-22 08:12] VITALS: BP 141/91
[2017-10-22] MEDS: LEVOFLOXACIN 250 MG TAB PO SCH (09:51)
[2017-10-22] MEDS: PANTOPRAZOLE 40 MG TAB PO SCH (09:53)
[2017-10-22] MEDS: INSULIN DETEMIR(LEVEMIR) 1unit/0.01ml Soln (100units/ml) SC SCH ×2 (09:53→21:35)
[2017-10-22 12:14] VITALS: BP 138/78
[2017-10-22] MEDS ORDERED: NITROGLYCERIN 0.4 MG SL TAB SL PRN (12:30)
[2017-10-22] MEDS ORDERED: ALBUTEROL SULF 2.5 MG/0.5ML(0.5%) NEB SOLN NEB PRN (12:30)
[2017-10-22] MEDS: METOCLOPRAMIDE HCL 5MG/ml INJ 2ml VIAL IV PRN (16:39)
[2017-10-22] MEDS ORDERED: INSU1.2I SC (16:58)
[2017-10-22] MEDS ORDERED: EMPA1TAB3 PO (17:02)
[2017-10-22] MEDS ORDERED: GLIP-116 PO (17:02)
[2017-10-22] MEDS ORDERED: SITA100T7 PO (17:02)
[2017-10-22 17:10] VITALS: BP 159/102
[2017-10-22 20:00] VITALS: BP 140/84
[2017-10-22 22:15] VITALS: BP 140/84
[2017-10-22] MEDS: PROMETHAZINE W/CODEINE 5 ML ORAL SYRUP PO PRN (23:19)
[2017-10-23] VITALS (8 sets, daily range): BP systolic 132–148; BP diastolic 80–98
[2017-10-23] MEDS: ALBUTEROL SULF 2.5 MG/0.5ML(0.5%) NEB SOLN NEB SCH ×4 (00:11→19:37)
[2017-10-23] MEDS: InsuLIN REG 1unit/0.01ml Soln (100units/ml) SC SCH ×3 (05:46→17:25)
[2017-10-23] MEDS: ACCU-CHEK COMFORT CURVE STRIP VI SCH ×3 (05:46→17:24)
[2017-10-23 06:21] LABS: Basophils # (auto) 0 uL; Basophils % (auto) 0.4 % (0.0-2.0); Eosinophils # (auto) 0.2 uL; Hematocrit 25.6 % (36.0-46.0); Hemoglobin 8.8 g/dL (12.2-16.2); Lymphocytes # (auto) 1.3 uL; Lymphocytes % (auto) 11.9 % (10.0-50.0); Mean Corpuscular Hemoglobin 29.6 pg (28.0-32.0); Mean Corpuscular Hgb Conc. 34.4 g/dL (32.0-36.0); Mean Corpuscular Volume 85.9 fL (80.0-100.0); Monocytes # (auto) 1.2 uL; Monocytes % (auto) 10.9 % (0.0-12.0); Neutrophils # (auto) 8.4 uL; Neutrophils % (auto) 74.8 % (37.0-80.0); Platelet Count (auto) 310 10^3/uL (140-450); Red Blood Cells 2.98 10^6/uL (4.0-5.20); Red Cell Distribution Width 13.6 % (11.8-14.3); White Blood Cell 11.2 10^3/uL (4.4-10.8)
[2017-10-23 06:39] LABS: Calcium 8.2 mg/dL (8.5-10.1); Potassium 3.6 mmol/L (3.5-5.1)
[2017-10-23] MEDS: PANTOPRAZOLE 40 MG TAB PO SCH (09:38)
[2017-10-23] MEDS: INSULIN DETEMIR(LEVEMIR) 1unit/0.01ml Soln (100units/ml) SC SCH ×2 (09:38→22:00)
[2017-10-23] MEDS: LEVOFLOXACIN 250 MG TAB PO SCH (09:38)
[2017-10-23] MEDS ORDERED: FLUCONAZOLE 200MG/100ML 100 ML IV ONE (11:30)
[2017-10-23] MEDS ORDERED: LABETALOL HCL 5 MG/ML ML 20ML VIAL IV PRN (12:00)
[2017-10-23] MEDS ORDERED: SOD CHL 0.45% 1,000 ML IV ONE (16:00)
[2017-10-24] MEDS: ALBUTEROL SULF 2.5 MG/0.5ML(0.5%) NEB SOLN NEB SCH ×3 (00:50→12:05)
[2017-10-24 05:12] VITALS: BP 140/89
[2017-10-24 06:02] LABS: Basophils # (auto) 0.1 uL; Basophils % (auto) 0.6 % (0.0-2.0); Eosinophils # (auto) 0.2 uL; Eosinophils % (auto) 1.8 % (0.0-7.0); Hemoglobin 9.1 g/dL (12.2-16.2); Lymphocytes # (auto) 1.3 uL; Lymphocytes % (auto) 11.6 % (10.0-50.0); Mean Corpuscular Hgb Conc. 33.7 g/dL (32.0-36.0); Mean Corpuscular Volume 86.1 fL (80.0-100.0); Monocytes # (auto) 1.1 uL; Monocytes % (auto) 9.8 % (0.0-12.0); Neutrophils # (auto) 8.3 uL; Neutrophils % (auto) 76.2 % (37.0-80.0); Platelet Count (auto) 309 10^3/uL (140-450); Red Blood Cells 3.13 10^6/uL (4.0-5.20); Red Cell Distribution Width 13.3 % (11.8-14.3); White Blood Cell 10.8 10^3/uL (4.4-10.8)
[2017-10-24] MEDS: InsuLIN REG 1unit/0.01ml Soln (100units/ml) SC SCH ×4 (06:09→18:00)
[2017-10-24] MEDS: ACCU-CHEK COMFORT CURVE STRIP VI SCH ×4 (06:09→18:00)
[2017-10-24 06:13] LABS: Calcium 8.2 mg/dL (8.5-10.1); Potassium 3.3 mmol/L (3.5-5.1)
[2017-10-24 06:19] LABS: BUN/Creatinine Ratio 5.6
[2017-10-24 08:00] VITALS: BP 128/82
[2017-10-24 09:00] VITALS: BP 128/82
[2017-10-24] MEDS ORDERED: FLUCONAZOLE 200MG/100ML 100 ML IV SCH (10:00)
[2017-10-24] MEDS: PANTOPRAZOLE 40 MG TAB PO SCH (10:03)
[2017-10-24] MEDS: INSULIN DETEMIR(LEVEMIR) 1unit/0.01ml Soln (100units/ml) SC SCH (10:03)
[2017-10-24] MEDS: LEVOFLOXACIN 250 MG TAB PO SCH (10:38)
[2017-10-24 13:00] VITALS: BP 150/99
[2017-10-24 13:01] VITALS: BP 128/82
== END 2017-10-24 17:00 | disposition home or self-care (01) | DRG 720 ==
LOC: ER 21:26 → TELE 21:27 → ICU WEST 10-12 12:35 → TELE-EAST 10-18 17:59 → EAST 10-21 22:17
PROVIDERS: ADMIT Internal Medicine; ATTEND Internal Medicine
PROC: 5A1955Z Respiratory Ventilation, Greater than 96 Consecutive Hours (ICD-10-PCS; principal; 2017-10-10)
PROC: 0BH17EZ Insertion of Endotracheal Airway into Trachea, Via Natural or Artificial Opening (ICD-10-PCS; 2017-10-10)
PROC: 05H533Z Insertion of Infusion Device into Right Subclavian Vein, Percutaneous Approach (ICD-10-PCS; 2017-10-11)
PROC: 02HV33Z Insertion of Infusion Device into Superior Vena Cava, Percutaneous Approach (ICD-10-PCS; 2017-10-12)
PROC: 5A1D70Z Performance of Urinary Filtration, Intermittent, Less than 6 Hours Per Day (ICD-10-PCS; 2017-10-12)
PROC: 5A1D70Z Performance of Urinary Filtration, Intermittent, Less than 6 Hours Per Day (ICD-10-PCS; 2017-10-14)
PROC: 5A1D70Z Performance of Urinary Filtration, Intermittent, Less than 6 Hours Per Day (ICD-10-PCS; 2017-10-17)
PROC: 5A1D70Z Performance of Urinary Filtration, Intermittent, Less than 6 Hours Per Day (ICD-10-PCS; 2017-10-19)
DX: A41.01 Sepsis due to Methicillin susceptible Staphylococcus aureus (principal); N17.0 Acute kidney failure with tubular necrosis; J96.01 Acute respiratory failure with hypoxia; G93.5 Compression of brain; R65.21 Severe sepsis with septic shock; G93.41 Metabolic encephalopathy; E10.10 Type 1 diabetes mellitus with ketoacidosis without coma; E43 Unspecified severe protein-calorie malnutrition; J15.212 Pneumonia due to Methicillin resistant Staphylococcus aureus; N18.6 End stage renal disease; K85.90 Acute pancreatitis without necrosis or infection, unspecified; J10.08 Influenza due to other identified influenza virus with other specified pneumonia; N39.0 Urinary tract infection, site not specified; Z99.2 Dependence on renal dialysis; D64.9 Anemia, unspecified; E66.9 Obesity, unspecified; E78.5 Hyperlipidemia, unspecified; E83.39 Other disorders of phosphorus metabolism; E87.0 Hyperosmolality and hypernatremia; E87.6 Hypokalemia; F41.9 Anxiety disorder, unspecified; H57.02 Anisocoria; J45.909 Unspecified asthma, uncomplicated; N83.201 Unspecified ovarian cyst, right side; K92.2 Gastrointestinal hemorrhage, unspecified; R53.2 Functional quadriplegia; K80.20 Calculus of gallbladder without cholecystitis without obstruction; E10.22 Type 1 diabetes mellitus with diabetic chronic kidney disease; D68.59 Other primary thrombophilia; Z98.84 Bariatric surgery status; Z68.31 Body mass index [BMI] 31.0-31.9, adult
CPT/HCPCS: 31500; 36415; 36600; 51702; 70450; 71010; 71045; 71046; 71250; 74176; 76705; 76937; 80048; 80053; 80307; 81001; 82010; 82150; 82270; 82805; 82962; 83036; 83540; 83550; 83605; 83690; 83735; 83930; 84100; 84132; 84702; 85007; 85014; 85018; 85025; 85027; 85045; 85610; 85730; 86850; 86900; 86901; 87040; 87070; 87077; 87081; 87086; 87186; 87205; 87400; 87493; 90935; 93306; 94002; 94003; 94640; 95819; 96361; 96365; 96375; 97116; 97163; 97530; C9113; G9035; J0330; J0885; J1450; J1642; J1815; J2001; J2250; J2543; J2704; J3490; J7042; J7060